=== PATIENT | male | born 1990 | race Asian ===

== ENCOUNTER 2018-12-02 18:11 | Emergency (ER) | payer SELFPAY ==
[~2018-12-02] VITALS: Ht 160 cm; Wt 68.0 kg
[2018-12-02 18:20] VITALS: BP 165/85
--- NOTE | 2018-12-02 18:42 | PHYS DOC ---
Past Medical History Past Medical History: No Pertinent History Past Surgical History: No Surgical History Alcohol Use: None Drug Use: None Adult General Chief Complaint Chief Complaint: HAND PROBLEM HPI HPI Patient is a 28 year old male who presents with left hand pain. 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 No other complaints. Review of Systems Review of Systems Constitutional: Denies fever or chills [] Eyes: Denies change in visual acuity, redness, or eye pain [] HENT: Denies nasal congestion or sore throat [] Respiratory: Denies cough or shortness of breath [] Cardiovascular: No additional information not addressed in HPI [] GI: Denies abdominal pain, nausea, vomiting, bloody stools or diarrhea [] : Denies dysuria or hematuria [] Musculoskeletal: Reports L hand pain, and numbness to fifth digit. Integument: Denies rash or skin lesions [] Neurologic: Denies headache, focal weakness or sensory changes [] Endocrine: Denies polyuria or polydipsia [] Complete systems were reviewed and found to be within normal limits, except as documented in this note. Physical Exam Physical Exam Constitutional: Well developed, well nourished, no acute distress, non-toxic appearance. [] HENT: Normocephalic, atraumatic, bilateral external ears normal, oropharynx moist, no oral exudates, nose normal. [] Eyes: PERRLA, EOMI, conjunctiva normal, no discharge. [] Neck: Normal range of motion, no tenderness, supple, no stridor. [] Cardiovascular:Heart rate regular rhythm, no murmur [] Lungs & Thorax: Bilateral breath sounds clear to auscultation [] Abdomen: Bowel sounds normal, soft, no tenderness, no masses, no pulsatile masses. [] Skin: Warm, dry, no erythema, no rash. [] Back: No tenderness, no CVA tenderness. [] Extremities: L palmar hand pain, mild edema and numbness to fifth digit. Neurologic: Alert and oriented X 3, normal motor function, normal sensory function, no focal deficits noted. [] Psychologic: Affect normal, judgement normal, mood normal. [] Current Patient Data Vital Signs Vital Signs Date Time Temp Pulse Resp B/P (MAP) Pulse Ox O2 Delivery O2 Flow Rate FiO2 12/02/18 18:20 98.4 82 15 165/85 (111) 97 Room Air 98.4 EKG EKG [] Radiology/Procedures Radiology/Procedures [][facility] [address] [place] [address] IMAGING REPORT Signed PATIENT: KAMRAN GALVAN ACCOUNT: [id number] : 1990 LOCATION: ER AGE: 28 SEX: M EXAM STATUS: REG ER ORD. PHYSICIAN: HAL TREVIÑO APRN REASON: PAIN, SWELLING r/o abscess to R hand PROCEDURE: EXT NON VASC RIGHT Sonography of the right hand Clinical indications: Medial palm pain and swelling for 6 days. Possible abscess. FINDINGS: High-resolution sonography of the area of clinical concern in the fifth metacarpal palmar region was performed. There is soft tissue edema present here. No fluid collection or abscess is seen. IMPRESSION: Soft tissue edema without abscess. Electronically signed by: Matti Clark MD (12/02/2018 9:27 PM) [facility] DICTATED and SIGNED BY: MATTI CLARK MD DATE: 12/02/182126 Course & Med Decision Making Course & Med Decision Making Pertinent Labs and Imaging studies reviewed. (See chart for details) Will get L hand x-ray. Dr. Aldridge preliminary read to x-ray shows tissue swelling but obvious fractures. Discussed case with Dr. Aldridge who request Ultrasound to R/O abscess. No abscess likely a hand contusion. Dragon Disclaimer Dragon Disclaimer This electronic medical record was generated, in whole or in part, using a voice recognition dictation system. Departure Departure Impression: Primary Impression: Hand pain, right Disposition: 01 HOME, SELF-CARE Condition: STABLE Referrals: NO PCP (PCP) Patient Instructions: Hand Contusion Additional Instructions: Thank you for visiting [facility]. We appreciate you trusting us with your care. If any additional problems come up don't hesitate to return to visit us. Please follow up with your primary care provider so they can plan additional care if needed and know about the problem that you had. If symptoms worsen come back to the Emergency Department. Any concerning symptoms that start such as chest pain, shortness of air, weakness or numbness on one side of the body, running high fevers or any other concerning symptoms return to the ER. Please take 400 mg of Ibuprofen Q 6 hours for inflammation. HAL TREVIÑO APRN Dec 02, 2018 18:42
--- NOTE | 2018-12-02 21:30 | RAD ---
Sonography of the right hand Clinical indications: Medial palm pain and swelling for 6 days. Possible abscess. FINDINGS: High-resolution sonography of the area of clinical concern in the fifth metacarpal palmar region was performed. There is soft tissue edema present here. No fluid collection or abscess is seen. IMPRESSION: Soft tissue edema without abscess. Electronically signed by: Frederic Clark MD (12/02/2018 9:27 PM) [facility]
--- NOTE | 2018-12-03 05:47 | RAD ---
Right hand 3 views: Reason for examination: Pain and edema. There is a linear lucency suggested at the base of the fourth metacarpal bone on the PA view only. Nondisplaced fracture cannot be excluded. No other site of fracture or dislocation is seen. The bone density is normal. No abnormal periosteal reaction is seen. Joint spaces are maintained. IMPRESSION: Linear lucency at the base of the fourth metacarpal bone seen on PA view. Cannot exclude fracture. Recommend clinical correlation and follow-up. Electronically signed by: Allegra Verdin MD (12/03/2018 5:44 AM) [facility]
== END 2018-12-02 21:55 | disposition home or self-care (01) ==
LOC: ER 18:11
DX: M79.641 Pain in right hand (principal)
CPT/HCPCS: 73130; 76881; 99284-25